=== PATIENT | female | born 1975 | race Two or more races ===

== ENCOUNTER 2017-10-10 03:42 | Emergency (ER) | payer SELFPAY ==
[~2017-10-10] VITALS: Ht 162.6 cm; Wt 88.5 kg
[2017-10-10 05:31] VITALS: BP 136/96
[2017-10-10 05:33] LABS: Urine RBC None Seen /hpf (0 - 4)
[2017-10-10 05:40] LABS: Urine Bilirubin Negative (Negative); Urine Blood Negative /uL (Negative); Urine Color Yellow (Yellow); Urine Glucose Normal (Normal); Urine Ketone Negative (Negative); Urine Mucus FEW (None Seen); Urine Nitrite Negative (Negative); Urine Squamous Epithelial Cell FEW /hpf (<5); Urine Urobilinogen Normal (Negative); Urine pH 5.5 (5.0-8.0)
[2017-10-10 06:45] LABS: Eosinophils # (auto) 0.1 uL; Mean Corpuscular Volume 62.9 fL (80.0-100.0); Neutrophils # (auto) 5.7 uL; White Blood Cell 7.4 10^3/uL (4.4-10.8)
[2017-10-10 06:47] LABS: Basophils # (auto) 0 uL; Basophils % (auto) 0.6 % (0.0-2.0); Lymphocytes # (auto) 0.9 uL; Lymphocytes % (auto) 12.3 % (10.0-50.0); Mean Corpuscular Hemoglobin 18.7 pg (28.0-32.0); Mean Corpuscular Hgb Conc. 29.7 g/dL (32.0-36.0); Mean Platelet Volume 7.4 fL (6.9-10.8); Monocytes # (auto) 0.6 uL; Monocytes % (auto) 7.6 % (0.0-12.0); Neutrophils % (auto) 77.5 % (37.0-80.0); Platelet Count (auto) 316 10^3/uL (140-450); Red Cell Distribution Width 18.5 % (11.8-14.3)
[2017-10-10 06:59] LABS: INR 0.92 (0.9-1.15); Partial Thromboplastin Time 23.7 sec (22.64-33.71)
[2017-10-10 07:03] LABS: Albumin 3.3 g/dL (3.4-5.0); Anion Gap 8 (5-15); Aspartate Aminotransferase 14 U/L (15-37); BUN/Creatinine Ratio 21.1; Blood Urea Nitrogen 12 mg/dL (7-18); Calcium 8.1 mg/dL (8.5-10.1); Carbon Dioxide 24 mmol/L (21-32); Chloride 105 mmol/L (98-107); GFR African American 150 mL/min; GFR Non-African American 124 mL/min; Glucose 105 mg/dL (74-106); Potassium 3.7 mmol/L (3.5-5.1); Sodium 137 mmol/L (136-145)
[2017-10-10 07:08] LABS: Alkaline Phosphatase 74 U/L (45-117); Bilirubin, Total 0.1 mg/dL (0.2-1.0); Total Protein 7.3 g/dL (6.4-8.2)
[2017-10-10 07:11] LABS: B-Type Natriuretic Peptide 18.54 pg/mL (0-100); Salicylate < 1.7 mg/dL (2.8-20.0)
[2017-10-10 07:15] LABS: Acetaminophen < 2.0 ug/mL (10-30)
[2017-10-10 07:17] LABS: Temperature: 22.8 C (20.0-25.0)
[2017-10-10 08:57] LABS: Anisocytosis Moderate; Hypochromia Marked; Microcytosis Marked; Ovalocytes FEW; Platelet Estimate Adequate
== END 2017-10-10 10:05 | disposition home or self-care (01) ==
LOC: EDBD 03:42 → ER 03:48
DX: F41.9 Anxiety disorder, unspecified (principal); I10 Essential (primary) hypertension; F20.9 Schizophrenia, unspecified; F12.10 Cannabis abuse, uncomplicated; Z88.0 Allergy status to penicillin
CPT/HCPCS: 36415; 80053; 80307; 80320; 80329; 81001; 83880; 84484; 84702; 85025; 85610; 85730

== ENCOUNTER 2019-07-15 20:48 | Emergency (ER) | payer SELFPAY ==
[~2019-07-15] VITALS: Ht 162.6 cm; Wt 86.2 kg
[2019-07-15] MEDS ORDERED: cloNIDine HCL 0.1 MG TAB PO ONE (21:15)
[2019-07-15 21:20] LABS: Basophils # (auto) 0.1 uL; Monocytes # (auto) 0.6 uL; Monocytes % (auto) 5.5 % (0.0-12.0); Neutrophils # (auto) 6.4 uL
[2019-07-15 21:22] LABS: Basophils % (auto) 0.8 % (0.0-2.0); Eosinophils # (auto) 0.4 uL; Eosinophils % (auto) 3.4 % (0.0-7.0); Hematocrit 25.1 % (36.0-46.0); Hemoglobin 7.2 g/dL (12.2-16.2); Lymphocytes % (auto) 28.9 % (10.0-50.0); Mean Corpuscular Hemoglobin 17.5 pg (28.0-32.0); Mean Corpuscular Hgb Conc. 28.8 g/dL (32.0-36.0); Mean Corpuscular Volume 60.8 fL (80.0-100.0); Neutrophils % (auto) 61.4 % (37.0-80.0); Platelet Count (auto) 477 10^3/uL (140-450); Red Blood Cells 4.12 10^6/uL (4.0-5.20); Red Cell Distribution Width 18.6 % (11.8-14.3); White Blood Cell 10.4 10^3/uL (4.4-10.8)
[2019-07-15 21:35] LABS: INR 0.95 (0.9-1.15); Partial Thromboplastin Time 22.8 sec (23.64-32.05)
[2019-07-15 21:36] LABS: Albumin 3.5 g/dL (3.4-5.0); Anion Gap 5 (5-15); Blood Urea Nitrogen 12 mg/dL (7-18); Calcium 8.5 mg/dL (8.5-10.1); Carbon Dioxide 27 mmol/L (21-32); Chloride 110 mmol/L (98-107); Glucose 132 mg/dL (74-106); Magnesium 2.2 mg/dL (1.6-2.6); Potassium 3.3 mmol/L (3.5-5.1); Sodium 142 mmol/L (136-145)
[2019-07-15 21:38] LABS: Acetaminophen < 2.0 ug/mL (10-30); Salicylate < 1.7 mg/dL (2.8-20.0)
[2019-07-15 21:41] LABS: Alanine Aminotransferase 15 U/L (13-56); Alkaline Phosphatase 74 U/L (45-117); Aspartate Aminotransferase 9 U/L (15-37); BUN/Creatinine Ratio 18.8; Bilirubin, Total 0.2 mg/dL (0.2-1.0); GFR African American 130 mL/min; GFR Non-African American 108 mL/min; Total Protein 7.4 g/dL (6.4-8.2)
[2019-07-15 21:47] LABS: Urine Bacteria FEW /hpf (None Seen); Urine Blood Negative /uL (Negative); Urine Mucus FEW (None Seen); Urine Specific Gravity 1.022 (1.001-1.035); Urine WBC 11 /hpf (0 - 5)
[2019-07-15 22:00] LABS: Alcohol, Urine < 3.0 mg/dL (0-5); Amphetamine Screen, Urine POSITIVE (NEGATIVE); Barbiturate Scree,Urine NEGATIVE (NEGATIVE); Benzodiazephine Screen, Urine NEGATIVE (NEGATIVE); Cannabinoid Screen, Urine POSITIVE (NEGATIVE); Cocaine Screen, Urine NEGATIVE (NEGATIVE); Opiate Scree,Urine NEGATIVE (NEGATIVE); Phencyclidine Screen, Urine NEGATIVE (NEGATIVE)
[2019-07-16 04:30] VITALS: BP 146/80
== END 2019-07-16 05:33 | disposition home or self-care (01) ==
LOC: ER 20:51
DX: I16.0 Hypertensive urgency (principal); N39.0 Urinary tract infection, site not specified; F41.9 Anxiety disorder, unspecified; I10 Essential (primary) hypertension; Z88.0 Allergy status to penicillin
CPT/HCPCS: 36415; 71046; 80053; 80307; 80320; 80329; 81001; 83735; 83880; 84484; 85025; 85610; 85730; 93005

== ENCOUNTER 2019-08-16 15:41 | Emergency (ER) | payer MEDICAID ==
[~2019-08-16] VITALS: Ht 162.6 cm; Wt 86.2 kg
[2019-08-16 16:00] VITALS: BP 147/84
== END 2019-08-16 17:23 | disposition home or self-care (01) ==
LOC: ER 15:41
DX: T16.1XXA Foreign body in right ear, initial encounter (principal); I10 Essential (primary) hypertension; F12.10 Cannabis abuse, uncomplicated; F15.10 Other stimulant abuse, uncomplicated; Z88.0 Allergy status to penicillin; X58.XXXA Exposure to other specified factors, initial encounter; Y93.89 Activity, other specified; Y92.89 Other specified places as the place of occurrence of the external cause; Y99.8 Other external cause status
CPT/HCPCS: 69200